=== PATIENT | female | born 1970 | race African-American/Black ===

== ENCOUNTER 2017-06-27 20:11 | Emergency (ER) | payer BC ==
[~2017-06-27] VITALS: Ht 157.5 cm; Wt 56.0 kg
[~2017-06-27 20:11] MED LIST: ACET500C5 PO; ALBU8.5H5 INH; BECL8.7A INH; CLIN-73 PO; DICL50TA11 PO; DOXY100T20 PO; IBUP-1542 PO; LORA1TAB PO; ONDA4TAB35 PO; ONDA4TAB8 PO; POLY17PO6 PO; QUET25TA26 PO; TRAM50TA2 PO
[2017-06-27 20:13] VITALS: Ht 157.5 cm; Wt 56.0 kg
[2017-06-27] MEDS ORDERED: KETOROLAC 30 MG INJ IM STA (21:04)
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
== END 2017-06-28 01:00 | disposition home or self-care (01) ==
LOC: FTE 20:11 → E/R 06-28 01:00
DX: S39.92XA Unspecified injury of lower back, initial encounter (principal); S79.912A Unspecified injury of left hip, initial encounter; J45.909 Unspecified asthma, uncomplicated; V49.40XA Driver injured in collision with unspecified motor vehicles in traffic accident, initial encounter
CPT/HCPCS: 72100; 73510; 96372; 99284; J1885

== ENCOUNTER 2018-07-01 10:02 | Emergency (ER) | END 2018-07-01 12:02 | disposition home or self-care (01) ==

== ENCOUNTER 2019-03-19 15:09 | Emergency (ER) | payer SELFPAY ==
[~2019-03-19] VITALS: Ht 167.6 cm; Wt 51.2 kg
[~2019-03-19 15:09] MED LIST changes: -CLIN-73 PO; +CLIN300C10 PO; +ONDA4TAB14 PO; +QUET25TA PO; -QUET25TA26 PO
[2019-03-19 15:12] VITALS: BP 133/63; PULSE 87; RESP 20; Ht 167.6 cm; Wt 51.2 kg
== END 2019-03-19 22:19 | disposition left against medical advice (07) ==
LOC: FTE 15:09
DX: Z53.21 Procedure and treatment not carried out due to patient leaving prior to being seen by health care provider (principal)